=== PATIENT | female | born 1955 | race Caucasian/White ===

== ENCOUNTER → 2016-04-17 | Outpatient (CLI) | payer OTHER | LOC: RAD 17:46 | PROVIDERS: ATTEND Specialist | DX: C34.91 Malignant neoplasm of unspecified part of right bronchus or lung (principal) | CPT/HCPCS: 78815; A9552 ==

== ENCOUNTER 2016-06-22 09:53 | Outpatient (CLI) | payer OTHER ==
[~2016-06-22 09:53] MED LIST: DIPHENHYDRAMINE HCL 50 MG/ML VIAL IV PRN; FAMOTIDINE INJ/PF 20 MG/2 ML SDV IV PRN; NORMAL SALINE 250 ML IV PRN; NORMAL SALINE IV PRN; ONDANSETRON HCL/PF 16 MG, DEXAMETHASONE SOD PHOSPHATE 20 MG in NORMAL SALINE 50 ML IV PRN; PEMETREXED DISODIUM IV PRN
[2016-06-22 10:36] VITALS: BP 114/54
== END 2016-06-22 11:47 | disposition home or self-care (01) ==
LOC: II 09:53 → 5TH 10:44 → II 11:47
PROVIDERS: ATTEND Specialist
PROC: 3E03305 Introduction of Other Antineoplastic into Peripheral Vein, Percutaneous Approach (ICD-10-PCS; principal; 2016-06-22)
PROC: 3E033GC Introduction of Other Therapeutic Substance into Peripheral Vein, Percutaneous Approach (ICD-10-PCS; 2016-06-22)
DX: Z51.11 Encounter for antineoplastic chemotherapy (principal); C34.91 Malignant neoplasm of unspecified part of right bronchus or lung
CPT/HCPCS: 96367; 96375; 96413; J1100; J1200; J2405; J9305; S0028

== ENCOUNTER 2016-07-13 14:53 | Outpatient (CLI) | payer OTHER ==
[2016-07-13] MEDS ORDERED: ONDANSETRON HCL/PF 16 MG, DEXAMETHASONE SOD PHOSPHATE 20 MG in NORMAL SALINE 50 ML IV PRN (15:02)
[2016-07-13] MEDS ORDERED: NORMAL SALINE 250 ML IV PRN (15:05)
[2016-07-13] MEDS ORDERED: NORMAL SALINE IV PRN (15:05)
[2016-07-13] MEDS ORDERED: PEMETREXED DISODIUM IV PRN (15:05)
[2016-07-13 15:45] VITALS: BP 130/76
== END 2016-07-13 16:05 | disposition home or self-care (01) ==
LOC: II 14:53 → 5TH 15:01 → II 16:05
PROVIDERS: ATTEND Specialist
PROC: 3E03305 Introduction of Other Antineoplastic into Peripheral Vein, Percutaneous Approach (ICD-10-PCS; principal; 2016-07-13)
PROC: 3E033GC Introduction of Other Therapeutic Substance into Peripheral Vein, Percutaneous Approach (ICD-10-PCS; 2016-07-13)
DX: Z51.11 Encounter for antineoplastic chemotherapy (principal); C34.91 Malignant neoplasm of unspecified part of right bronchus or lung
CPT/HCPCS: 96413; 96367; J2405; J1100; J9305 ×2

== ENCOUNTER → 2016-07-15 | Outpatient (CLI) | payer OTHER | LOC: RAD 12:35 | PROVIDERS: ATTEND Specialist | DX: C34.90 Malignant neoplasm of unspecified part of unspecified bronchus or lung (principal) | CPT/HCPCS: 78815; A9552 ==

== ENCOUNTER 2016-08-03 11:59 | Outpatient (CLI) | payer OTHER ==
[~2016-08-03 11:59] MED LIST changes: -DIPHENHYDRAMINE HCL 50 MG/ML VIAL IV PRN; -FAMOTIDINE INJ/PF 20 MG/2 ML SDV IV PRN
[2016-08-03 12:57] VITALS: BP 144/72
[2016-08-03] MEDS ORDERED: ACETAMINOPHEN 325 MG TABLET ONE (13:35)
[2016-08-03] MEDS ORDERED: DIPHENHYDRAMINE HCL 25 MG CAPSULE ONE (13:35)
== END 2016-08-03 14:34 | disposition home or self-care (01) ==
LOC: II 11:59 → 5TH 12:01 → II 14:34
PROVIDERS: ATTEND Specialist
PROC: 3E03305 Introduction of Other Antineoplastic into Peripheral Vein, Percutaneous Approach (ICD-10-PCS; principal; 2016-08-03)
PROC: 3E033GC Introduction of Other Therapeutic Substance into Peripheral Vein, Percutaneous Approach (ICD-10-PCS; 2016-08-03)
DX: Z51.11 Encounter for antineoplastic chemotherapy (principal); C34.91 Malignant neoplasm of unspecified part of right bronchus or lung
CPT/HCPCS: 96413; 96366; J2405; J1100; J9305 ×2; 96367

== ENCOUNTER → 2016-08-11 | Outpatient (CLI) | payer OTHER ==
--- NOTE | 2016-08-11 11:43 | WOMENS IMAGING REPORT ---
EXAM DESCRIPTION: U/S BREAST UNILAT LIMITED COMPLETED DATE/TIME: 08/11/2016 11:12 am REASON FOR STUDY: R SIDE BREAST LIPOMA; D17.9 D17.9 BENIGN LIPOMATOUS NEOPLASM, UNSPECIFIED COMPARISON: None. TECHNIQUE: Real-time and static grayscale imaging performed of the right breast targeted to the area of clinical/mammographic concern. Selected color Doppler images recorded. LIMITATIONS: None. FINDINGS: MASS: No mass identified. Normal glandular tissue. OTHER: No other significant finding. IMPRESSION: No suspicious findings detected by ultrasound. BIRAD: 1 Negative. RECOMMENDATION: RECOMMENDED FOLLOW-UP: Follow-up as clinically indicated. COMMENT: The [employer] (ACR) has developed recommendations for screening MRI of the breasts in certain patient populations, to be used in conjunction with mammography. Breast MRI s urveillance may be appropriate for women with more than 20% lifetime risk of developing breast cancer as determined by genetic testing, significant family history of the disease, or history of mantle r adiation for Hodgkins Disease. ACR Practice Guidelines 2008. TECHNICAL DOCUMENTATION: JOB ID: [id number] [employer]- All Rights Reserved
== END ==
LOC: WI 10:26
PROVIDERS: ATTEND Specialist
DX: D17.9 Benign lipomatous neoplasm, unspecified (principal)
CPT/HCPCS: 76642

== ENCOUNTER → 2016-08-17 | Outpatient (CLI) | payer OTHER | LOC: OD 14:19 | PROVIDERS: ATTEND Specialist | DX: D64.9 Anemia, unspecified (principal); C34.91 Malignant neoplasm of unspecified part of right bronchus or lung; Z53.8 Procedure and treatment not carried out for other reasons ==

== ENCOUNTER 2016-08-24 08:09 | Outpatient (CLI) | payer OTHER ==
[~2016-08-24 08:09] MED LIST changes: +ONDANSETRON HCL/PF 16 MG, DEXAMETHASONE SOD PHOSPHATE 10 MG in NORMAL SALINE 50 ML IV PRN; -ONDANSETRON HCL/PF 16 MG, DEXAMETHASONE SOD PHOSPHATE 20 MG in NORMAL SALINE 50 ML IV PRN
[2016-08-24 09:15] VITALS: BP 147/81
== END 2016-08-24 09:50 | disposition home or self-care (01) ==
LOC: II 08:09 → 5TH 08:10 → II 09:50 → 5TH 09:50
PROVIDERS: ATTEND Specialist
PROC: 3E03305 Introduction of Other Antineoplastic into Peripheral Vein, Percutaneous Approach (ICD-10-PCS; principal; 2016-08-24)
PROC: 3E033GC Introduction of Other Therapeutic Substance into Peripheral Vein, Percutaneous Approach (ICD-10-PCS; 2016-08-24)
DX: Z51.11 Encounter for antineoplastic chemotherapy (principal); C34.91 Malignant neoplasm of unspecified part of right bronchus or lung
CPT/HCPCS: 96413; 96367; J2405; J1100; J9305 ×2

== ENCOUNTER 2016-09-14 09:02 | Outpatient (CLI) | payer OTHER ==
[2016-09-14 10:02] VITALS: BP 142/78
== END 2016-09-14 10:44 | disposition home or self-care (01) ==
LOC: II 09:02 → 5TH 09:04 → II 10:44
PROVIDERS: ATTEND Internal Medicine
PROC: 3E03305 Introduction of Other Antineoplastic into Peripheral Vein, Percutaneous Approach (ICD-10-PCS; principal; 2016-09-14)
PROC: 3E033GC Introduction of Other Therapeutic Substance into Peripheral Vein, Percutaneous Approach (ICD-10-PCS; 2016-09-14)
DX: Z51.11 Encounter for antineoplastic chemotherapy (principal); C34.91 Malignant neoplasm of unspecified part of right bronchus or lung
CPT/HCPCS: 96413; 96365; J2405; J1100; J9305 ×2; 96367

== ENCOUNTER 2016-10-05 11:31 | Outpatient (CLI) | payer OTHER ==
[~2016-10-05 11:31] MED LIST changes: -NORMAL SALINE 250 ML IV PRN
[2016-10-05 11:56] VITALS: BP 140/80
[2016-10-05] MEDS: NORMAL SALINE 250 ML IV PRN ×2 (12:03→12:26)
== END 2016-10-05 12:45 | disposition home or self-care (01) ==
LOC: II 11:31 → 5TH 11:33 → II 12:45
PROVIDERS: ATTEND Internal Medicine
PROC: 3E03305 Introduction of Other Antineoplastic into Peripheral Vein, Percutaneous Approach (ICD-10-PCS; principal; 2016-10-05)
PROC: 3E033GC Introduction of Other Therapeutic Substance into Peripheral Vein, Percutaneous Approach (ICD-10-PCS; 2016-10-05)
DX: Z51.11 Encounter for antineoplastic chemotherapy (principal); C34.91 Malignant neoplasm of unspecified part of right bronchus or lung
CPT/HCPCS: 96409; 96375; J2405; J1100; J9305 ×2; 96365; 96413

== ENCOUNTER → 2016-11-02 | Outpatient (CLI) | payer SELFPAY ==
[2016-11-02 19:50] LABS: THYROID STIMULATING HORMONE 13.7 uIU/mL (0.47-4.68)
== END ==
LOC: OD 18:04
PROVIDERS: ATTEND Internal Medicine
DX: E03.9 Hypothyroidism, unspecified (principal)
CPT/HCPCS: 36415; 84439; 84443

== ENCOUNTER → 2016-11-11 | Outpatient (CLI) | payer SELFPAY ==
--- NOTE | 2016-11-11 10:43 | RADIOLOGY REPORT (SQ) ---
EXAM DESCRIPTION: CT CHEST WITH COMPLETED DATE/TIME: 11/11/2016 9:56 am REASON FOR STUDY: LUNG CA (C34.91) C34.91 MALIGNANT NEOPLASM OF UNSP PART OF RIGHT BRONCHUS OR COMPARISON: None. TECHNIQUE: CT scan of the chest performed using helical scanning technique with dynamic intravenous contrast injection. Images reviewed with lung, soft tissue and bone windows. Reconstructed coronal and sagittal MPR images reviewed. All images stored on PACS. All CT scanners at this facility use dose modulation, iterative reconstruction, and/or weight based d osing when appropriate to reduce radiation dose to as low as reasonably achievable (ALARA). [facility]: Dose Right [facility]: CareDose [facility]: Dose Right [facility]: Teradose 4D [facility]: Isoflux CONTRAST TYPE AND DOSE: contrast/concentration: Isovue 370.00 mg/ml; Total Contrast Delivered: 80.0 ml; Total Saline Delivered: 55.0 ml RENAL FUNCTION: Creatinine 0.8 RADIATION DOSE: Up-to-date CT equipment and radiation dose reduction techniques were employed. CTDIv ol: 2.8 mGy. DLP: 108 mGy-cm. . LIMITATIONS: None. FINDINGS: LUNGS AND PLEURA: Centrilobular emphysematous changes are most prominent in the upper lobe s but scattered throughout the lungs what appear to be post radiation changes are present the right u pper lobe on image 24 series 2 there is an area of confluent density measuring 20 x 45 mm seen latera lly in the right lung. The 4 cm mass present on the earlier study is no longer identified as such. HILAR AND MEDIASTINAL STRUCTURES: No identified masses or abnormal nodes. HEART AND VASCULAR STRUCTURES: No aneurysm or dissection. No central pulmonary emboli. No pericardi al effusion. HARDWARE: None in the chest. UPPER ABDOMEN: There is moderate ascites. THYROID AND OTHER SOFT TISSUES: No masses. No adenopathy. The thyroid is surgically absent. BONES: No significant finding. OTHER: No other significant finding. IMPRESSION: 1. Marked chronic lung changes. 2. Radiation change in the right upper lobe predominantly. There is residual confluent density as d escribed. This may represent residual tumor. It may represent scarring. 3. There is ascites. TECHNICAL DOCUMENTATION: JOB ID: [id number] Quality ID # 436: Final reports with documentation of one or more dose reduction techniques (e.g., Au tomated exposure control, adjustment of the mA and/or kV according to patient size, use of iterative reconstruction technique) 2010 [employer] All Rights Reserved
== END ==
LOC: RAD 09:20
PROVIDERS: ATTEND Internal Medicine
DX: C34.91 Malignant neoplasm of unspecified part of right bronchus or lung (principal)
CPT/HCPCS: 71260; 82565

== ENCOUNTER 2016-11-16 12:02 | Outpatient (CLI) | payer OTHER ==
[~2016-11-16 12:02] MED LIST changes: +NORMAL SALINE 250 ML IV PRN
[2016-11-16 12:19] VITALS: BP 139/78
== END 2016-11-16 13:30 | disposition home or self-care (01) ==
LOC: II 12:02 → 5TH 12:04 → II 13:30
PROVIDERS: ATTEND Internal Medicine
PROC: 3E03305 Introduction of Other Antineoplastic into Peripheral Vein, Percutaneous Approach (ICD-10-PCS; principal; 2016-11-16)
PROC: 3E033GC Introduction of Other Therapeutic Substance into Peripheral Vein, Percutaneous Approach (ICD-10-PCS; 2016-11-16)
DX: Z51.11 Encounter for antineoplastic chemotherapy (principal); C34.91 Malignant neoplasm of unspecified part of right bronchus or lung
CPT/HCPCS: 96409; 96367; J2405; J1100; J9305 ×2; 96413

== ENCOUNTER 2016-12-07 11:39 | Outpatient (CLI) | payer SELFPAY ==
[2016-12-07 12:49] VITALS: BP 134/75
== END 2016-12-07 13:25 | disposition home or self-care (01) ==
LOC: II 11:39 → 5TH 11:40 → II 13:25
PROVIDERS: ATTEND Internal Medicine
PROC: 3E03305 Introduction of Other Antineoplastic into Peripheral Vein, Percutaneous Approach (ICD-10-PCS; principal; 2016-12-07)
PROC: 3E033GC Introduction of Other Therapeutic Substance into Peripheral Vein, Percutaneous Approach (ICD-10-PCS; 2016-12-07)
DX: Z51.11 Encounter for antineoplastic chemotherapy (principal); C34.91 Malignant neoplasm of unspecified part of right bronchus or lung; R91.8 Other nonspecific abnormal finding of lung field; D64.9 Anemia, unspecified
CPT/HCPCS: 96413; 96367; J2405; J1100; J9305 ×2; 96409

== ENCOUNTER 2016-12-28 12:20 | Outpatient (CLI) | payer SELFPAY ==
[~2016-12-28 12:20] MED LIST changes: +CYANOCOBALAMIN (VITAMIN B-12) INJ 1000 MCG/1 ML VIAL IM PRN
[2016-12-28 13:24] VITALS: BP 149/75
== END 2016-12-28 14:06 | disposition home or self-care (01) ==
LOC: II 12:20 → 5TH 12:32 → II 14:06
PROVIDERS: ATTEND Internal Medicine Hematology & Oncology
PROC: 3E04305 Introduction of Other Antineoplastic into Central Vein, Percutaneous Approach (ICD-10-PCS; principal; 2016-12-28)
PROC: 3E043GC Introduction of Other Therapeutic Substance into Central Vein, Percutaneous Approach (ICD-10-PCS; 2016-12-28)
PROC: 3E0437Z Introduction of Electrolytic and Water Balance Substance into Central Vein, Percutaneous Approach (ICD-10-PCS; 2016-12-28)
PROC: 3E013GC Introduction of Other Therapeutic Substance into Subcutaneous Tissue, Percutaneous Approach (ICD-10-PCS; 2016-12-28)
DX: Z51.11 Encounter for antineoplastic chemotherapy (principal); C34.91 Malignant neoplasm of unspecified part of right bronchus or lung; R91.8 Other nonspecific abnormal finding of lung field; D64.81 Anemia due to antineoplastic chemotherapy; T45.1X5A Adverse effect of antineoplastic and immunosuppressive drugs, initial encounter
CPT/HCPCS: 96413; 96367; 96372; 96375; J3420; J2405; J1100; J9305 ×2; 96361; 96411

== ENCOUNTER 2017-01-18 09:49 | Outpatient (CLI) | payer SELFPAY ==
[~2017-01-18 09:49] MED LIST changes: -CYANOCOBALAMIN (VITAMIN B-12) INJ 1000 MCG/1 ML VIAL IM PRN; +DARBEPOETIN ALFA IN POLYSORBAT 500 MCG/ML SYRINGE SUBCUT PRN
[2017-01-18 10:11] VITALS: BP 129/78
== END 2017-01-18 12:50 | disposition home or self-care (01) ==
LOC: II 09:49 → 5TH 09:51 → II 12:50
PROVIDERS: ATTEND Internal Medicine Hematology & Oncology
PROC: 3E04305 Introduction of Other Antineoplastic into Central Vein, Percutaneous Approach (ICD-10-PCS; principal; 2017-01-18)
PROC: 3E043GC Introduction of Other Therapeutic Substance into Central Vein, Percutaneous Approach (ICD-10-PCS; 2017-01-18)
PROC: 3E013GC Introduction of Other Therapeutic Substance into Subcutaneous Tissue, Percutaneous Approach (ICD-10-PCS; 2017-01-18)
DX: Z51.11 Encounter for antineoplastic chemotherapy (principal); C34.91 Malignant neoplasm of unspecified part of right bronchus or lung; D64.81 Anemia due to antineoplastic chemotherapy; R91.8 Other nonspecific abnormal finding of lung field
CPT/HCPCS: 96401; 96413; 96367; 96523; J2405; J1100; J9305 ×2; J0881; 96372; 96409

== ENCOUNTER 2017-02-08 09:30 | Outpatient (CLI) | payer OTHER ==
[2017-02-08 09:55] VITALS: BP 124/69
== END 2017-02-08 11:48 | disposition home or self-care (01) ==
LOC: II 09:30 → 5TH 09:31 → II 11:48
PROVIDERS: ATTEND Internal Medicine Hematology & Oncology
PROC: 3E04305 Introduction of Other Antineoplastic into Central Vein, Percutaneous Approach (ICD-10-PCS; principal; 2017-02-08)
PROC: 3E043GC Introduction of Other Therapeutic Substance into Central Vein, Percutaneous Approach (ICD-10-PCS; 2017-02-08)
PROC: 3E013GC Introduction of Other Therapeutic Substance into Subcutaneous Tissue, Percutaneous Approach (ICD-10-PCS; 2017-02-08)
DX: Z51.11 Encounter for antineoplastic chemotherapy (principal); C34.91 Malignant neoplasm of unspecified part of right bronchus or lung; D64.81 Anemia due to antineoplastic chemotherapy; R91.8 Other nonspecific abnormal finding of lung field
CPT/HCPCS: 96413; 96367; 96523; J2405; J1100; J9305 ×2; J0881; 96409

== ENCOUNTER 2017-03-01 11:14 | Outpatient (CLI) | payer SELFPAY ==
[~2017-03-01 11:14] MED LIST changes: +CYANOCOBALAMIN (VITAMIN B-12) INJ 1000 MCG/1 ML VIAL IM PRN
[2017-03-01 11:35] VITALS: BP 142/75
[2017-03-01 11:50] LABS: ALANINE AMINOTRANSFERASE 23 U/L (9-52); ALBUMIN 3.4 g/dL (3.5-5.0); ALKALINE PHOSPHATASE 123 U/L (38-126); ANION GAP 12 (5-19); ASPARTATE AMINO TRANSFERASE 20 U/L (14-36); BILIRUBIN,DIRECT 0.3 mg/dL (0.0-0.4); BILIRUBIN,TOTAL 0.3 mg/dL (0.2-1.3); BLOOD UREA NITROGEN 8 mg/dL (7-20); CALCIUM 8.9 mg/dL (8.4-10.2); CARBON DIOXIDE 27 mmol/L (22-30); CHLORIDE 91 mmol/L (98-107); GLUCOSE 91 mg/dL (75-110); POTASSIUM 4.2 mmol/L (3.6-5.0); SODIUM 130.4 mmol/L (137-145); TOTAL PROTEIN 7.2 g/dL (6.3-8.2)
[2017-03-01 12:20] LABS: CARCINOEMBRYONIC ANTIGEN 8.2 ng/mL (<3.0)
== END 2017-03-01 13:25 | disposition home or self-care (01) ==
LOC: II 11:14 → 5TH 11:25 → II 13:25
PROVIDERS: ATTEND Internal Medicine Hematology & Oncology
PROC: 3E04305 Introduction of Other Antineoplastic into Central Vein, Percutaneous Approach (ICD-10-PCS; principal; 2017-03-01)
PROC: 3E043GC Introduction of Other Therapeutic Substance into Central Vein, Percutaneous Approach (ICD-10-PCS; 2017-03-01)
PROC: 3E0 Administration, Physiological Systems and Anatomical Regions, Introduction (ICD-10-PCS; 2017-03-01)
DX: Z51.11 Encounter for antineoplastic chemotherapy (principal); C34.91 Malignant neoplasm of unspecified part of right bronchus or lung; D64.81 Anemia due to antineoplastic chemotherapy
CPT/HCPCS: 36415; 82378; 80053; 96413; 96372; 96375; J3420; J2405; J1100; J9305; 96367; 96409; J0881

== ENCOUNTER → 2017-03-20 | Outpatient (CLI) | payer SELFPAY ==
--- NOTE | 2017-03-20 10:41 | RADIOLOGY REPORT (SQ) ---
EXAM DESCRIPTION: CT CHEST WITH COMPLETED DATE/TIME: 03/20/2017 8:43 am REASON FOR STUDY: LUNG CA (C34.91) C34.91 MALIGNANT NEOPLASM OF UNSP PART OF RIGHT BRONCHUS OR COMPARISON: 11/11/2016. Correlation: PET-CT 07/15/2016. TECHNIQUE: CT scan of the chest performed using helical scanning technique with dynamic intravenous contrast injection. Images reviewed with lung, soft tissue and bone windows. Reconstructed coronal and sagittal MPR images reviewed. All images stored on PACS. All CT scanners at this facility use dose modulation, iterative reconstruction, and/or weight based d osing when appropriate to reduce radiation dose to as low as reasonably achievable (ALARA). [facility]: Dose Right [facility]: CareDose [facility]: Dose Right [facility]: Teradose 4D [facility]: [employer] CONTRAST TYPE AND DOSE: contrast/concentration: Isovue 370.00 mg/ml; Total Contrast Delivered: 80.0 ml; Total Saline Delivered: 55.0 ml RENAL FUNCTION: BUN 8 creatinine 0.7 RADIATION DOSE: CT Rad equipment meets quality standard of care and radiation dose reduction techniq ues were employed. CTDIvol: 2.8 mGy. DLP: 105 mGy-cm. . LIMITATIONS: None. FINDINGS: LUNGS AND PLEURA: Increasing consolidation in the right upper lobe largely obscuring the a esthela of the primary tumor. Fibrosis superior segment right lower lobe in the radiation port. No susp icious findings in the left lung. HILAR AND MEDIASTINAL STRUCTURES: No identified masses or abnormal nodes. HEART AND VASCULAR STRUCTURES: No aneurysm or dissection. No central pulmonary emboli. No pericardi al effusion. HARDWARE: Right-sided port tip in the SVC. UPPER ABDOMEN: Trace ascites. THYROID AND OTHER SOFT TISSUES: No masses. No adenopathy. BONES: No acute findings. OTHER: No other significant finding. IMPRESSION: Postradiation changes in the tumor bed. TECHNICAL DOCUMENTATION: JOB ID: [id number] Quality ID # 436: Final reports with documentation of one or more dose reduction techniques (e.g., Au tomated exposure control, adjustment of the mA and/or kV according to patient size, use of iterative reconstruction technique) 2010 [employer]- All Rights Reserved
== END ==
LOC: RAD 08:13
PROVIDERS: ATTEND Internal Medicine
DX: C34.91 Malignant neoplasm of unspecified part of right bronchus or lung (principal)
CPT/HCPCS: 71260

== ENCOUNTER 2017-03-22 09:57 | Outpatient (CLI) | payer SELFPAY ==
[~2017-03-22 09:57] MED LIST changes: -CYANOCOBALAMIN (VITAMIN B-12) INJ 1000 MCG/1 ML VIAL IM PRN
[2017-03-22 11:04] VITALS: BP 115/60
== END 2017-03-22 12:07 | disposition home or self-care (01) ==
LOC: II 09:57 → 5TH 09:59 → II 12:07
PROVIDERS: ATTEND Internal Medicine Hematology & Oncology
PROC: 3E03305 Introduction of Other Antineoplastic into Peripheral Vein, Percutaneous Approach (ICD-10-PCS; principal; 2017-03-22)
PROC: 3E033GC Introduction of Other Therapeutic Substance into Peripheral Vein, Percutaneous Approach (ICD-10-PCS; 2017-03-22)
PROC: 3E013GC Introduction of Other Therapeutic Substance into Subcutaneous Tissue, Percutaneous Approach (ICD-10-PCS; 2017-03-22)
DX: Z51.11 Encounter for antineoplastic chemotherapy (principal); C34.91 Malignant neoplasm of unspecified part of right bronchus or lung; R91.8 Other nonspecific abnormal finding of lung field; D64.81 Anemia due to antineoplastic chemotherapy
CPT/HCPCS: 96413; 96367; 96372; 96375; J2405; J1100; J9305 ×2; J0881; 96409

== ENCOUNTER 2017-04-12 09:28 | Outpatient (CLI) | payer SELFPAY ==
[2017-04-12 11:21] VITALS: BP 139/73
== END 2017-04-12 11:28 | disposition home or self-care (01) ==
LOC: II 09:28 → 5TH 09:29 → II 11:28
PROVIDERS: ATTEND Internal Medicine
PROC: 3E04305 Introduction of Other Antineoplastic into Central Vein, Percutaneous Approach (ICD-10-PCS; principal; 2017-04-12)
PROC: 3E043GC Introduction of Other Therapeutic Substance into Central Vein, Percutaneous Approach (ICD-10-PCS; 2017-04-12)
PROC: 3E0433Z Introduction of Anti-inflammatory into Central Vein, Percutaneous Approach (ICD-10-PCS; 2017-04-12)
PROC: 3E013GC Introduction of Other Therapeutic Substance into Subcutaneous Tissue, Percutaneous Approach (ICD-10-PCS; 2017-04-12)
DX: Z51.11 Encounter for antineoplastic chemotherapy (principal); C34.91 Malignant neoplasm of unspecified part of right bronchus or lung; D64.81 Anemia due to antineoplastic chemotherapy
CPT/HCPCS: 96401; 96413; 96367; 96374; J2405; J1100; J9305 ×2; J0881

== ENCOUNTER → 2017-06-19 | Outpatient (CLI) | payer SELFPAY ==
--- NOTE | 2017-06-19 14:56 | RADIOLOGY REPORT (SQ) ---
EXAM DESCRIPTION: CT CHEST WITH COMPLETED DATE/TIME: 06/19/2017 2:31 pm REASON FOR STUDY: LUNG CA C34.91 MALIGNANT NEOPLASM OF UNSP PART OF RIGHT BRONCHUS OR COMPARISON: 03/20/2017, 11/11/2016 02/15/2016. . TECHNIQUE: CT scan of the chest performed using helical scanning technique with dynamic intravenous contrast injection. Images reviewed with lung, soft tissue and bone windows. Reconstructed coronal and sagittal MPR images reviewed. All images stored on PACS. All CT scanners at this facility use dose modulation, iterative reconstruction, and/or weight based d osing when appropriate to reduce radiation dose to as low as reasonably achievable (ALARA). [facility]: Dose Right [facility]: CareDose [facility]: Dose Right [facility]: Teradose 4D [facility]: [employer] CONTRAST TYPE AND DOSE: 80 mL Isovue 370- low osmolar. RENAL FUNCTION: BUN 8 creatinine 0.68. RADIATION DOSE: . LIMITATIONS: None. FINDINGS: LUNGS AND PLEURA: Emphysematous changes. Worsening opacification of the right upper lobe with development of a large cystic area. Spiculated mass in the left lower lobe measures 1.6 cm with prior measurement 1.2 cm. No pleural effusion or pleural thickening. HILAR AND MEDIASTINAL STRUCTURES: No identified masses or abnormal nodes. HEART AND VASCULAR STRUCTURES: No aneurysm or dissection. No central pulmonary emboli. No pericardi al effusion. HARDWARE: None in the chest. UPPER ABDOMEN: See separate report of the CT of the abdomen. THYROID AND OTHER SOFT TISSUES: No masses. No adenopathy. BONES: No significant finding. OTHER: No other significant finding. IMPRESSION: CHRONIC EMPHYSEMATOUS CHANGES. MARKED WORSENING OPACIFICATION OF THE RIGHT UPPER LOBE W ITH DEVELOPMENT OF A LARGE CYSTIC AREA. DIFFICULT TO DETERMINE IF THESE FINDINGS REPRESENT PROGRESSI VE SCARRING SECONDARY TO TREATMENT OR IF THERE MAY BE PROGRESSION OF TUMOR. ADDITIONALLY THERE IS AN IRREGULAR MASS IN THE LEFT LOWER LOBE WHICH HAS INCREASED IN SIZE, CONCERNING FOR MALIGNANCY. RECOM MEND PET SCAN FOR FURTHER EVALUATION OF THESE AREAS. TECHNICAL DOCUMENTATION: JOB ID: [id number] Quality ID # 436: Final reports with documentation of one or more dose reduction techniques (e.g., Au tomated exposure control, adjustment of the mA and/or kV according to patient size, use of iterative reconstruction technique) 2010 [employer]- All Rights Reserved Reading location - IP/workstation name: [email or web address]
--- NOTE | 2017-06-19 15:02 | RADIOLOGY REPORT (SQ) ---
EXAM DESCRIPTION: CT ABD/PELVIS WITH IV ONLY COMPLETED DATE/TIME: 06/19/2017 2:31 pm REASON FOR STUDY: LUNG CA C34.91 MALIGNANT NEOPLASM OF UNSP PART OF RIGHT BRONCHUS OR COMPARISON: None. TECHNIQUE: CT scan of the abdomen and pelvis performed using helical scanning technique with dynamic intravenous contrast injection. No oral contrast. Images reviewed with lung, soft tissue, and bone windows. Reconstructed coronal and sagittal MPR images reviewed. Delayed images for evaluation of the urinary system also acquired. All images stored on PACS. All CT scanners at this facility use dose modulation, iterative reconstruction, and/or weight based d osing when appropriate to reduce radiation dose to as low as reasonably achievable (ALARA). [facility]: Dose Right [facility]: CareDose [facility]: Dose Right [facility]: Teradose 4D [facility]: [employer] CONTRAST TYPE AND DOSE: contrast/concentration: Isovue 370.00 mg/ml; Total Contrast Delivered: 42.0 ml; Total Saline Delivered: 65.0 ml RENAL FUNCTION: Creatinine 0.8. RADIATION DOSE: CT Rad equipment meets quality standard of care and radiation dose reduction techniq ues were employed. CTDIvol: 4.4 - 4.5 mGy. DLP: 589 mGy-cm.. LIMITATIONS: None. FINDINGS: LOWER CHEST: No significant findings. No nodules or infiltrates. LIVER: Normal size. No masses. No dilated ducts. SPLEEN: Normal size. No focal lesions. PANCREAS: No masses. No significant calcifications. No adjacent inflammation or peripancreatic fluid collections. Pancreatic duct not dilated. GALLBLADDER: No identified stones by CT criteria. No inflammatory changes to suggest cholecystitis. ADRENAL GLANDS: No significant masses or asymmetry. RIGHT KIDNEY AND URETER: No solid masses. No significant calcifications. No hydronephrosis or hyd roureter. LEFT KIDNEY AND URETER: No solid masses. No significant calcifications. No hydronephrosis or hydr oureter. AORTA AND VESSELS: No aneurysm. No dissection. Renal arteries, SMA, celiac without stenosis. RETROPERITONEUM: No retroperitoneal adenopathy, hemorrhage or masses. BOWEL AND PERITONEAL CAVITY: No masses or inflammatory changes. No free fluid or peritoneal masses. APPENDIX: Surgically absent. PELVIS: No mass. No free fluid. Normal bladder. ABDOMINAL WALL: No masses. No hernias. BONES: No significant or acute findings. OTHER: No other significant finding. IMPRESSION: NO SIGNIFICANT OR ACUTE FINDING IN THE ABDOMEN OR PELVIS ON CT SCAN WITH IV CONTRAST. TECHNICAL DOCUMENTATION: JOB ID: [id number] Quality ID # 436: Final reports with documentation of one or more dose reduction techniques (e.g., Au tomated exposure control, adjustment of the mA and/or kV according to patient size, use of iterative reconstruction technique) 2010 [employer]- All Rights Reserved Reading location - IP/workstation name: [facility]
== END ==
LOC: RAD 13:30
PROVIDERS: ATTEND Internal Medicine
DX: C34.91 Malignant neoplasm of unspecified part of right bronchus or lung (principal); R91.8 Other nonspecific abnormal finding of lung field
CPT/HCPCS: 71260; 74177; 82565

== ENCOUNTER → 2017-06-25 | Outpatient (CLI) | payer OTHER ==
--- NOTE | 2017-06-26 09:50 | RADIOLOGY REPORT (SQ) ---
EXAM DESCRIPTION: PET CT SKULL/THIGH COMPLETED DATE/TIME: 06/25/2017 7:16 pm REASON FOR STUDY: LUNG CANCER C34.91 MALIGNANT NEOPLASM OF UNSP PART OF RIGHT BRONCHUS OR COMPARISON: 07/15/2016. Correlation: CT chest abdomen pelvis 06/19/2017. RADIONUCLIDE AND DOSE: 10.38 mCi F18 FDG The route of agent administration: Intravenous FASTING BLOOD SUGAR: 103 mg/dl CONTRAST TYPE AND DOSE: No CT contrast given. TECHNIQUE: Blood glucose level was verified. Above dose of FDG was injected intravenously. 2-D seg mented attenuation correction images were obtained from the base of the skull to the midthighs. Nonc ontrast CT images were obtained for attenuation correction and fusion with emission images. CT image s were performed without oral or intravenous contrast and are not sensitive for parenchymal lesions. A series of overlapping emission PET images were obtained. Images reviewed and manipulated at [facility] work station by the radiologist. Images stored on PACS. LIMITATIONS: None. FINDINGS: HEAD AND NECK: No areas of abnormal metabolic activity in the soft tissues of the head and neck. CHEST: Hypermetabolic rind of tissue associated with cavitary lesion in the right upper lobe measurin g 4.0 SUV. Hypermetabolic 1.4 cm nodule left lower lobe 9.5 SUV. ABDOMEN AND PELVIS: No areas of abnormal metabolic activity in the abdomen or pelvis. Expected physi ologic activity is present in the genitourinary system and bowel. PROXIMAL LOWER EXTREMITIES: No areas of abnormal metabolic activity in the soft tissues of the lower extremities. BONES: No abnormal metabolic activity in the visualized skeleton. ADDITIONAL CT FINDINGS: See recent CT. No additional acute findings. OTHER: No other significant findings. IMPRESSION: 1. Hypermetabolic rind of tissue associated with large cavitary lesion in the right upper lobe. 2. Hypermetabolic nodule left lower lobe. TECHNICAL DOCUMENTATION: JOB ID: [id number] [employer]- All Rights Reserved Reading location - IP/workstation name: [email or web address]
== END ==
LOC: RAD 17:24
PROVIDERS: ATTEND Internal Medicine Hematology & Oncology
DX: C34.91 Malignant neoplasm of unspecified part of right bronchus or lung (principal)
CPT/HCPCS: 78815; A9552

== ENCOUNTER 2017-06-29 08:56 | Day surgery (SDC) | payer OTHER ==
[2017-06-29 09:52] LABS: HEMATOCRIT 26.2 % (36.0-47.0); HEMOGLOBIN 8.7 g/dL (12.0-15.5); MEAN CORPUSCULAR HEMOGLOBIN 30.2 pg (27.0-33.4); MEAN CORPUSCULAR HGB CONC 33.4 g/dL (32.0-36.0); MEAN CORPUSCULAR VOLUME 90 fl (80-97); PLATELET COUNT 427 10^3/uL (150-450); RED CELL DISTRIBUTION WIDTH 15.2 % (11.5-14.0); WHITE BLOOD COUNT 7.2 10^3/uL (4.0-10.5)
[2017-06-29 09:55] LABS: INTERNATIONAL RATION (INR) 1.25; PROTHROMBIN TIME 16.3 SEC (11.4-15.4)
[2017-06-29 09:56] LABS: PARTIAL THROMBOPLASTIN TIME 49.6 SEC (23.5-35.8)
[2017-06-29 10:05] LABS: BLOOD UREA NITROGEN 9 mg/dL (7-20)
[2017-06-29] MEDS ORDERED: LIDOCAINE 1% INJ-PF (10 MG/ML) 30 ML SDV ONE (11:20)
[2017-06-29] MEDS ORDERED: MIDAZOLAM 2 MG/2 ML INJ ONE (11:20)
[2017-06-29] MEDS ORDERED: FENTANYL CITRATE INJ/PF 100 MCG/2 ML AMPUL ONE (11:20)
--- NOTE | 2017-06-29 12:36 | RADIOLOGY REPORT (SQ) ---
EXAM DESCRIPTION: CHEST SINGLE VIEW COMPLETED DATE/TIME: 06/29/2017 12:28 pm REASON FOR STUDY: POST LUNG BIOPSY COMPARISON: CT dated 06/19/2017. EXAM PARAMETERS: NUMBER OF VIEWS: One view. TECHNIQUE: Single frontal radiographic view of the chest acquired. RADIATION DOSE: NA LIMITATIONS: None. FINDINGS: LUNGS AND PLEURA: Cavitary mass in the right upper lobe. Scarring and pleural thickening in the left apex. No pneumothorax. MEDIASTINUM AND HILAR STRUCTURES: No masses. Contour normal. HEART AND VASCULAR STRUCTURES: Heart normal in size. Normal vasculature. BONES: No acute findings. HARDWARE: Vascular access port. OTHER: No other significant finding. IMPRESSION: NO PNEUMOTHORAX FOLLOWING PERCUTANEOUS LUNG BIOPSY. TECHNICAL DOCUMENTATION: JOB ID: [id number] [employer]- All Rights Reserved Reading location - IP/workstation name: [email or web address]
--- NOTE | 2017-06-29 12:39 | RADIOLOGY REPORT (SQ) ---
EXAM DESCRIPTION: CT BIOPSY LUNG/MEDIASTINUM; CT NEEDLE PLACEMENT COMPLETED DATE/TIME: 06/29/2017 12:05 pm; 06/29/2017 12:04 pm REASON FOR STUDY: SOLITARY PULMONARY NODULE; SOLITARY PULMONARY NODULE, LUNG BX R91.1 SOLITARY PULM ONARY NODULE C34.91 MALIGNANT NEOPLASM OF UNSP PART OF RIGHT BRONCHUS OR COMPARISON: PET-CT dated 06/25/2017. FLUORO TIME: 4.5 seconds. LIMITATIONS: None. PROCEDURE: After obtaining informed consent, the patient was brought to the CT suite and was placed supine on the CT gurney. The patient was prepped and draped in the usual sterile fashion . Axial shell ges were obtained for targeting of theleft lower lobe. An appropriate access site was selected. IV se dation was administered and physician direction by the registered nurse using 0.5 milligrams of Verse d and 25 micrograms of fentanyl. Physiologic monitoring was provided before, during, and after sedati on. The total sedation time was 30 minutes. Documentation face to face time, the performing proceduralist, spent monitoring the patient: [address] scanners at this facility use dose modulation, iterative reconstruction, and/or weight based d osing when appropriate to reduce radiation dose to as low as reasonably achievable (ALARA). [facility]: Dose Right [facility]: CareDose [facility]: Dose Right [facility]: Teradose 4D [facility]: [employer] After sterile skin prep and local lidocaine for skin and deep tissue anesthesia, a coaxial biopsy nee dle was used to obtain multiple cores of tissue. The biopsy tissue was submitted to the lab. There we re no immediate complications. Pathology is pending at the time of dictation. IMPRESSION: SUCCESSFUL CT GUIDED PERCUTANEOUS LUNG BIOPSY OF THE LEFT LOWER LOBE. COMMENT: Patient medication list reviewed: Yes- Quality ID# 130:Eligible professional attests to doc umenting in the medical record they obtained, updated, or reviewed the patient's current medications. . Quality ID 145: Final reports for procedures using fluoroscopy that document radiation exposure michael manoj, or exposure time and number of fluorographic images (if radiation exposure indices are not avail able) Quality ID # 436: Final reports with documentation of one or more dose reduction techniques (e.g., Au tomated exposure control, adjustment of the mA and/or kV according to patient size, use of iterative reconstruction technique) TECHNICAL DOCUMENTATION: JOB ID: [id number] [employer]- All Rights Reserved Reading location - IP/workstation name: [email or web address]
[2017-06-29] MEDS ORDERED: ALBUTEROL SULFATE 0.083% NEB 2.5 MG/3 ML AMPUL NEB ONE (12:59)
[2017-06-29 15:02] VITALS: BP 115/72
--- NOTE | 2017-06-29 15:22 | RADIOLOGY REPORT (SQ) ---
EXAM DESCRIPTION: CHEST SINGLE VIEW COMPLETED DATE/TIME: 06/29/2017 2:58 pm REASON FOR STUDY: POST LUNG BIOPSY *2 HOUR*- do at 2:30 COMPARISON: 06/29/2017 at 1225 hours. EXAM PARAMETERS: NUMBER OF VIEWS: One view. TECHNIQUE: Single frontal radiographic view of the chest acquired. RADIATION DOSE: NA LIMITATIONS: None. FINDINGS: LUNGS AND PLEURA: Stable cavitary lesion in the right upper lobe and pleural and parenchym al scarring in the left apex. No pneumothorax following percutaneous lung biopsy. MEDIASTINUM AND HILAR STRUCTURES: No masses. Contour normal. HEART AND VASCULAR STRUCTURES: Heart normal in size. Normal vasculature. BONES: No acute findings. HARDWARE: None in the chest. OTHER: No other significant finding. IMPRESSION: STABLE APPEARANCE OF THE CHEST. NO PNEUMOTHORAX FOLLOWING LUNG BIOPSY. TECHNICAL DOCUMENTATION: JOB ID: [id number] [employer]- All Rights Reserved Reading location - IP/workstation name: [facility]
== END 2017-06-29 15:20 | disposition home or self-care (01) ==
LOC: RAD 08:56
PROVIDERS: ATTEND Internal Medicine Hematology & Oncology
DX: C34.91 Malignant neoplasm of unspecified part of right bronchus or lung (principal); R91.1 Solitary pulmonary nodule
CPT/HCPCS: 36415; 84520; 82565; 85027; 85610; 85730; 88342 ×2; 88341 ×2; 88305 ×2; 71045; 77012; 32405; J2250; J3010; J3490

== ENCOUNTER 2017-07-25 09:47 | Outpatient (CLI) | payer OTHER ==
[~2017-07-25 09:47] MED LIST changes: +CARBOPLATIN IV PRN; -DARBEPOETIN ALFA IN POLYSORBAT 500 MCG/ML SYRINGE SUBCUT PRN; +ETOPOSIDE IV PRN; -ONDANSETRON HCL/PF 16 MG, DEXAMETHASONE SOD PHOSPHATE 10 MG in NORMAL SALINE 50 ML IV PRN; +ONDANSETRON HCL/PF 16 MG, DEXAMETHASONE SOD PHOSPHATE 20 MG in NORMAL SALINE 50 ML IV PRN; -PEMETREXED DISODIUM IV PRN
[2017-07-25 10:13] VITALS: BP 103/59
[2017-07-25 11:54] LABS: ALANINE AMINOTRANSFERASE 17 U/L (9-52); ALBUMIN 2.9 g/dL (3.5-5.0); ALKALINE PHOSPHATASE 140 U/L (38-126); ANION GAP 12 (5-19); ASPARTATE AMINO TRANSFERASE 20 U/L (14-36); BILIRUBIN,DIRECT 0.2 mg/dL (0.0-0.4); BILIRUBIN,TOTAL 0.2 mg/dL (0.2-1.3); BLOOD UREA NITROGEN 11 mg/dL (7-20); CALCIUM 8.4 mg/dL (8.4-10.2); CARBON DIOXIDE 27 mmol/L (22-30); CHLORIDE 92 mmol/L (98-107); GLUCOSE 131 mg/dL (75-110); POTASSIUM 4.3 mmol/L (3.6-5.0); SODIUM 131.1 mmol/L (137-145); TOTAL PROTEIN 7.2 g/dL (6.3-8.2)
== END 2017-07-25 13:25 | disposition home or self-care (01) ==
LOC: II 09:47 → 5TH 10:11 → II 13:25
PROVIDERS: ATTEND Internal Medicine Hematology & Oncology
PROC: 3E04305 Introduction of Other Antineoplastic into Central Vein, Percutaneous Approach (ICD-10-PCS; principal; 2017-07-25)
PROC: 3E0433Z Introduction of Anti-inflammatory into Central Vein, Percutaneous Approach (ICD-10-PCS; 2017-07-25)
PROC: 3E043GC Introduction of Other Therapeutic Substance into Central Vein, Percutaneous Approach (ICD-10-PCS; 2017-07-25)
DX: Z51.11 Encounter for antineoplastic chemotherapy (principal); C34.91 Malignant neoplasm of unspecified part of right bronchus or lung
CPT/HCPCS: 36415; 80053; 96413; 96367; 96420; 96417; J9045; J9181; J2405; J7050; J7040; J1100; 96415

== ENCOUNTER 2017-07-26 09:00 | Outpatient (CLI) | payer OTHER ==
[~2017-07-26 09:00] MED LIST changes: -CARBOPLATIN IV PRN
[2017-07-26 09:29] VITALS: BP 108/59
== END 2017-07-26 12:08 | disposition home or self-care (01) ==
LOC: II 09:00 → 5TH 09:27 → II 12:08
PROVIDERS: ATTEND Internal Medicine Hematology & Oncology
PROC: 3E04305 Introduction of Other Antineoplastic into Central Vein, Percutaneous Approach (ICD-10-PCS; principal; 2017-07-26)
PROC: 3E043GC Introduction of Other Therapeutic Substance into Central Vein, Percutaneous Approach (ICD-10-PCS; 2017-07-26)
DX: Z51.11 Encounter for antineoplastic chemotherapy (principal); C34.91 Malignant neoplasm of unspecified part of right bronchus or lung
CPT/HCPCS: 96413; 96367; J9181; J2405; J7040; J1100

== ENCOUNTER 2017-07-27 08:59 | Outpatient (CLI) | payer OTHER ==
[~2017-07-27 08:59] MED LIST changes: -NORMAL SALINE 250 ML IV PRN
[2017-07-27] MEDS: NORMAL SALINE 250 ML IV PRN ×2 (09:13→09:54)
[2017-07-27 09:30] VITALS: BP 119/66
== END 2017-07-27 11:45 | disposition home or self-care (01) ==
LOC: II 08:59 → 5TH 09:02 → II 11:45
PROVIDERS: ATTEND Internal Medicine Hematology & Oncology
PROC: 3E04305 Introduction of Other Antineoplastic into Central Vein, Percutaneous Approach (ICD-10-PCS; principal; 2017-07-27)
PROC: 3E043GC Introduction of Other Therapeutic Substance into Central Vein, Percutaneous Approach (ICD-10-PCS; 2017-07-27)
DX: Z51.11 Encounter for antineoplastic chemotherapy (principal); C34.91 Malignant neoplasm of unspecified part of right bronchus or lung
CPT/HCPCS: 96413; 96367; J9181; J2405; J7040; J1100

== ENCOUNTER 2017-07-28 11:15 | Outpatient (CLI) | payer OTHER ==
[~2017-07-28 11:15] MED LIST changes: -ETOPOSIDE IV PRN; -NORMAL SALINE IV PRN; -ONDANSETRON HCL/PF 16 MG, DEXAMETHASONE SOD PHOSPHATE 20 MG in NORMAL SALINE 50 ML IV PRN; +PEGFILGRASTIM INJ 6 MG/0.6 ML DISP.SYRIN SUBCUT PRN
[2017-07-28 11:48] VITALS: BP 123/71
== END 2017-07-28 11:49 | disposition home or self-care (01) ==
LOC: II 11:15 → 5TH 11:17 → II 11:49
PROVIDERS: ATTEND Internal Medicine Hematology & Oncology
PROC: 3E013GC Introduction of Other Therapeutic Substance into Subcutaneous Tissue, Percutaneous Approach (ICD-10-PCS; principal; 2017-07-28)
DX: Z76.89 Persons encountering health services in other specified circumstances (principal); C34.91 Malignant neoplasm of unspecified part of right bronchus or lung; D70.1 Agranulocytosis secondary to cancer chemotherapy
CPT/HCPCS: 96401; J2505

== ENCOUNTER 2017-08-15 10:13 | Outpatient (CLI) | payer OTHER ==
[~2017-08-15 10:13] MED LIST changes: +CARBOPLATIN IV PRN; +ETOPOSIDE IV PRN; +NORMAL SALINE 250 ML IV PRN; +NORMAL SALINE IV PRN; +ONDANSETRON HCL/PF 16 MG, DEXAMETHASONE SOD PHOSPHATE 20 MG in NORMAL SALINE 50 ML IV PRN; -PEGFILGRASTIM INJ 6 MG/0.6 ML DISP.SYRIN SUBCUT PRN
[2017-08-15 10:42] VITALS: BP 100/48
== END 2017-08-15 13:59 | disposition home or self-care (01) ==
LOC: II 10:13 → 5TH 10:17 → II 13:59
PROVIDERS: ATTEND Internal Medicine Hematology & Oncology
PROC: 3E04305 Introduction of Other Antineoplastic into Central Vein, Percutaneous Approach (ICD-10-PCS; principal; 2017-08-15)
PROC: 3E0433Z Introduction of Anti-inflammatory into Central Vein, Percutaneous Approach (ICD-10-PCS; 2017-08-15)
PROC: 3E043GC Introduction of Other Therapeutic Substance into Central Vein, Percutaneous Approach (ICD-10-PCS; 2017-08-15)
DX: Z51.11 Encounter for antineoplastic chemotherapy (principal); C34.91 Malignant neoplasm of unspecified part of right bronchus or lung; D70.1 Agranulocytosis secondary to cancer chemotherapy
CPT/HCPCS: 96413; 96415; 96367; 96374; J9045; J9181; J2405; J7050; J7040; J1100; 96417

== ENCOUNTER 2017-08-17 09:02 | Outpatient (CLI) | payer OTHER ==
[~2017-08-17 09:02] MED LIST changes: -CARBOPLATIN IV PRN
[2017-08-17 09:36] VITALS: BP 127/61
== END 2017-08-17 11:40 | disposition home or self-care (01) ==
LOC: II 09:02 → 5TH 09:15 → II 11:40
PROVIDERS: ATTEND Internal Medicine Hematology & Oncology
PROC: 3E04305 Introduction of Other Antineoplastic into Central Vein, Percutaneous Approach (ICD-10-PCS; principal; 2017-08-17)
PROC: 3E0433Z Introduction of Anti-inflammatory into Central Vein, Percutaneous Approach (ICD-10-PCS; 2017-08-17)
PROC: 3E043GC Introduction of Other Therapeutic Substance into Central Vein, Percutaneous Approach (ICD-10-PCS; 2017-08-17)
DX: Z51.11 Encounter for antineoplastic chemotherapy (principal); C34.91 Malignant neoplasm of unspecified part of right bronchus or lung; D70.1 Agranulocytosis secondary to cancer chemotherapy
CPT/HCPCS: 96413; 96367; J9181; J2405; J7040; J1100

== ENCOUNTER 2017-08-28 10:37 | Emergency (ER) | payer OTHER ==
--- NOTE | 2017-08-28 12:11 | ER Document Report ---
ED Respiratory Problem - General Chief Complaint: Shortness Of Breath Stated Complaint: SHORTNESS OF BREATH Time Seen by Provider: 08/28/17 11:53 Mode of Arrival: Wheelchair Information source: Patient Notes: Chief complaint: Shortness of breath History of complain: 61 years old female with a history of lung cancer on the right side, has been going through chemotherapy for the last several weeks last one was last Monday. Presents today with increasing shortness of breath. Continuous chest pain on and off. On pain medication. Status is DNR according to the family and patient No fever chills. Dry cough Onset: As above Duration: Gradual Severity: Moderate to severe Quality:dull with occasional sharp pains Context: Lung cancer Exacerbating factor and relieving factors: Change of position or exertion REVIEW OF SYSTEMS: CONSTITUTIONAL : Denies fever, chills, or sweats. Denies recent illness. EENT: Denies eye, ear, throat, or mouth pain or symptoms. Denies nasal or sinus congestion or discharge. Denies throat, tongue, or mouth swelling or difficulty swallowing. CARDIOVASCULAR: Denies chest pain. Denies palpitations or racing or irregular heart beat. Denies ankle edema. RESPIRATORY: As per history of complain GASTROINTESTINAL: Denies abdominal pain or distention. Denies nausea, vomiting , or diarrhea. Denies blood in vomitus, stools, or per rectum. Denies black, tarry stools. Denies constipation. GENITOURINARY: Denies difficulty urinating, painful urination, burning, frequency, blood in urine, or discharge. MUSCULOSKELETAL: Denies back or neck pain or stiffness. Denies joint pain or swelling. SKIN: Denies rash, lesions or sores. HEMATOLOGIC : Denies easy bruising or bleeding. LYMPHATIC: Denies swollen, enlarged glands. NEUROLOGICAL: Denies confusion or altered mental status. Denies passing out or loss of consciousness. Denies dizziness or lightheadedness. Denies headache. Denies weakness or paralysis or loss of use of either side. Denies problems with gait or speech. Denies sensory loss, numbness, or tingling. Denies seizures. PSYCHIATRIC: Denies anxiety or stress. Denies depression, suicidal ideation, or homicidal ideation. ALL OTHER SYSTEMS REVIEWED AND NEGATIVE. Dictation was performed using [employer] voice recognition software PHYSICAL EXAMINATION: GENERAL: Cachectic, moderate respiratory discomfort on oxygen HEAD: Atraumatic, normocephalic. EYES: Pupils equal round and reactive to light, extraocular movements intact, sclera anicteric, conjunctiva are normal. ENT: Nares patent, oropharynx clear without exudates. Moist mucous membranes. NECK: Normal range of motion, supple without lymphadenopathy LUNGS: Bilaterally diminished breath sounds, with scattered rales and crackles throughout the lung field HEART: Regular rate and rhythm without murmurs ABDOMEN: Soft, nontender, nondistended abdomen. No guarding, no rebound. No masses appreciated. Musculoskeletal: Normal range of motion, no pitting or edema. No cyanosis. NEUROLOGICAL: Cranial nerves grossly intact. Normal speech, normal gait. Normal sensory, motor exams PSYCH: Normal mood, normal affect. SKIN: Warm, Dry, normal turgor, no rashes or lesions noted. TRAVEL OUTSIDE OF THE [place] IN LAST 30 DAYS: No - Related Data Allergies/Adverse Reactions: Sulfa (Sulfonamide Antibiotics) Allergy (Unknown, Verified 01/16/17 10:32) Past Medical History - General Information source: Patient - Social History Smoking Status: Current Every Day Smoker Chew tobacco use (# tins/day): No Frequency of alcohol use: None Drug Abuse: None Family History: Reviewed & Not Pertinent Patient has suicidal ideation: No Patient has homicidal ideation: No - Past Medical History Cardiac Medical History: Reports: Hx Hypertension Denies: Hx Congestive Heart Failure, Hx Coronary Artery Disease, Hx Heart Attack Pulmonary Medical History: Reports: Hx Pneumonia - 2018 Denies: Hx Asthma, Hx Bronchitis, Hx COPD, Hx Tuberculosis Neurological Medical History: Denies: Hx Cerebrovascular Accident, Hx Seizures Renal/ Medical History: Denies: Hx End Stage Renal Disease, Hx Kidney Stones, Hx Peritoneal Dialysis GI Medical History: Denies: Hx Cirrhosis, Hx Gastroesophageal Reflux Disease, Hx Ulcer Musculoskeltal Medical History: Denies Hx Arthritis, Denies Hx Multiple Sclerosis Psychiatric Medical History: Denies: Hx Bipolar Disorder, Hx Depression, Hx Schizophrenia Past Surgical History: Reports: Hx Thyroid Surgery - Immunizations Hx Diphtheria, Pertussis, Tetanus Vaccination: No Review of Systems - Review of Systems Notes: Dictated Physical Exam - Vital signs Vitals: Resp BP Pulse Ox 26 H 100/57 L 96 08/28/17 11:00 08/28/17 11:00 08/28/17 11:00 - Notes Notes: Dictated Course - Vital Signs Vital signs: Temp Pulse Resp BP Pulse Ox 96.8 F L 77 16 92/77 L 92 08/28/17 17:58 08/28/17 17:58 08/28/17 17:58 08/28/17 17:58 08/28/17 17:58 - Laboratory Result Diagrams: 08/28/17 11:15 08/28/17 11:15 Laboratory results interpreted by me: 08/28/17 08/28/17 11:15 11:15 WBC 0.5 L* RBC 3.23 L Hgb 9.5 L Hct 27.1 L RDW 16.5 H Plt Count 4 L* Seg Neutrophils % 81.0 H Lymphocytes % 2.1 L Monocytes % 15.6 H Absolute Neutrophils 0.4 L Absolute Lymphocytes 0.0 L Sodium 119.6 L* Potassium 3.3 L Chloride 84 L Carbon Dioxide 20 L BUN 63 H Creatinine 2.84 H Est GFR ( Amer) 20 L Est GFR (Non-Af Amer) 17 L Glucose 122 H Calcium 6.8 L* Direct Bilirubin 1.0 H AST 7 L Total Protein 5.2 L Albumin 2.3 L Discharge - Discharge Clinical Impression: Pancytopenia Lung cancer Qualifiers: Laterality: right Lung location: middle lobe of lung Qualified Code(s): C34.2 - Malignant neoplasm of middle lobe, bronchus or lung Pneumonia Qualifiers: Pneumonia type: aspiration pneumonia Aspiration pneumonia type: unspecified Laterality: right Lung location: middle lobe of lung Qualified Code(s): J69.0 - Pneumonitis due to inhalation of food and vomit Sepsis Qualifiers: Sepsis type: sepsis due to unspecified organism Qualified Code(s): A41.9 - Sepsis, unspecified organism Condition: Serious Disposition: [facility] Referrals: CLAIRE PARADA MD [Primary Care Provider] - Follow up as needed
[2017-08-28 12:51] LABS: ABSOLUTE MONOCYTES (AUTO) 0.1 10^3/uL (0.1-1.4); ABSOLUTE NEUT (AUTO) 0.4 10^3/uL (1.7-8.2); BASOPHILS % (AUTO) 0.4 % (0-2); EOSINOPHILS % (AUTO) 0.9 % (0-6); HEMATOCRIT 27.1 % (36.0-47.0); HEMOGLOBIN 9.5 g/dL (12.0-15.5); LYMPHOCYTES % (AUTO) 2.1 % (13-45); MEAN CORPUSCULAR HEMOGLOBIN 29.4 pg (27.0-33.4); MEAN CORPUSCULAR HGB CONC 35.1 g/dL (32.0-36.0); MEAN CORPUSCULAR VOLUME 84 fl (80-97); MONOCYTES % (AUTO) 15.6 % (3-13); RED BLOOD COUNT 3.23 10^6/uL (3.72-5.28); RED CELL DISTRIBUTION WIDTH 16.5 % (11.5-14.0); TOTAL CELLS COUNTED % (AUTO) 100 %
[2017-08-28 12:59] LABS: ALBUMIN 2.3 g/dL (3.5-5.0); BLOOD UREA NITROGEN 63 mg/dL (7-20); CARBON DIOXIDE 20 mmol/L (22-30); CHLORIDE 84 mmol/L (98-107); GLUCOSE 122 mg/dL (75-110); POTASSIUM 3.3 mmol/L (3.6-5.0); TOTAL PROTEIN 5.2 g/dL (6.3-8.2)
[2017-08-28 13:00] LABS: ALANINE AMINOTRANSFERASE 18 U/L (9-52); ALKALINE PHOSPHATASE 105 U/L (38-126); ASPARTATE AMINO TRANSFERASE 7 U/L (14-36); BILIRUBIN,TOTAL 1.1 mg/dL (0.2-1.3)
[2017-08-28 13:07] LABS: ANION GAP 16 (5-19)
[2017-08-28 13:10] LABS: CALCIUM 6.8 mg/dL (8.4-10.2); SODIUM 119.6 mmol/L (137-145)
[2017-08-28 13:16] LABS: WHITE BLOOD COUNT 0.5 10^3/uL (4.0-10.5)
[2017-08-28 13:17] LABS: PLATELET COUNT 4 10^3/uL (150-450)
[2017-08-28 13:19] LABS: ANISOCYTOSIS 1+; OVALOCYTES 1+; PLATELET COMMENT DECREASED; POIKILOCYTOSIS 1+; POLYCHROMASIA SLIGHT; ROULEAUX 1+
--- NOTE | 2017-08-28 13:40 | RADIOLOGY REPORT (SQ) ---
EXAM DESCRIPTION: CHEST SINGLE VIEW COMPLETED DATE/TIME: 08/28/2017 1:00 pm REASON FOR STUDY: sob COMPARISON: 06/29/2017 EXAM PARAMETERS: NUMBER OF VIEWS: One view. TECHNIQUE: Single frontal radiographic view of the chest acquired. RADIATION DOSE: NA LIMITATIONS: None. FINDINGS: LUNGS AND PLEURA: Extensive pleural and parenchymal changes are again identified in the ri ght hemithorax consistent with postsurgical and post radiation changes. On the current study there a re confluent densities in the right lower lung field which could represent an acute process superimpo sed on the chronic underlying changes and there is blunting of the right costophrenic angle which may represent a small right pleural effusion. Less extensive pleuroparenchymal changes are identified i n the left hemithorax. There is some ill-defined increased density in the left mid lung field which could represent an acute process superimposed on the chronic underlying changes. I cannot exclude a component of obstructive lung disease. MEDIASTINUM AND HILAR STRUCTURES: Right hilar region is obscured due to adjacent densities. No left hilar masses are identified. HEART AND VASCULAR STRUCTURES: Cardiac silhouette is within normal limits for size. BONES: No acute findings. HARDWARE: Right-sided Port-A-Cath is unchanged in position. OTHER: No other significant finding. IMPRESSION: Extensive pleural and parenchymal changes in the right hemithorax and less pronounced ch anges in the left hemithorax as noted above. There are confluent densities in the right lower lung f ield which could represent an acute process superimposed on the chronic underlying changes in there i s blunting of the right costophrenic angle which may represent a small right pleural effusion. There is ill-defined increased density in the left mid lung field which could represent an acute process s uperimposed on the chronic underlying changes. Other findings as noted above density TECHNICAL DOCUMENTATION: JOB ID: [id number] [employer]- All Rights Reserved Reading location - IP/workstation name: [email or web address]
[2017-08-28] MEDS ORDERED: NORMAL SALINE 1000 ML 1,000 ML IV PRN (16:24)
--- NOTE | 2017-08-28 17:48 | PDOC CONSULTATION ---
Consultation Consult Date: 08/28/17 Consult reason:: Admission for further management of Sepsis, Pancytopenia History of Present Illness Admission Date/PCP: CLAIRE PARADA MD Patient complains of: presents to the emergency room with complaints of difficulty breathing and shortness of breath History of Present Illness: FAIZA NEGRON is a 61 year old female presents to the emergency room with complaints of difficulty breathing and shortness of breath. She has a history of lung cancer, adenocarcinoma of the right lung for which she is receiving chemotherapy. She is receiving carboplatin and etopiside. Her last cycle was August 15 with the last date being on August 17. Patient was found to have a right lower lung field densities likely representing an acute process superimposed on chronic underlying changes. She also has some ill-defined increased density in the left midlung. In addition patient was found to be hypotensive with systolic BP of 100 and pulse of 102 with a respiratory rate of 25 on initial presentation. Further evaluation revealed a white count of 0.5 total and platelet count of 4000. Her platelet count was 358 2000 just 2 weeks ago and a white count was 26,000. Patient also found to be in acute renal failure with a creatinine of 2.8 and BUN of 64 creatinine was 0.57 and BUN of 12. Her sodium was also 119 with a potassium of 3.3. Patient denies any bleeding and no abdominal pain. She is weak but not confused and there has been no seizure activities. Given this patient's overall picture with her multiple comorbidities and poor condition and the lack of subspecialties at this hospital as well as the lack of even platelets being available I discussed with the ED physician the possibility of transferring her to a tertiary center. I called [place] transfer [facility] and after discussion with patient was accepted for transfer. The plan is to send her through the ED as the have a bit available right now so that patient can get platelet transfusion CINDY she will be transferred to the ED. I discussed with the family, and that is patient's daughter as well as the patient herself and the agreed to the transfer. They want her to have a chance even though they realize that she is pretty sick and her condition is pretty serious with overall poor prognosis. Past Medical History Cardiac Medical History: Reports: Hypertension Denies: Congestive Heart Failure, Coronary Artery Disease, Myocardial Infarction Pulmonary Medical History: Reports: Pneumonia - 2018 Denies: Asthma, Bronchitis, Chronic Obstructive Pulmonary Disease (COPD), Tuberculosis Neurological Medical History: Denies: Seizures Renal/ Medical History: Denies: End Stage Renal Disease Malignancy Medical History: Reports: Lung Cancer GI Medical History: Denies: Cirrhosis, Gastroesophageal Reflux Disease Musculoskeltal Medical History: Denies: Arthritis Psychiatric Medical History: Denies: Bipolar Disorder, Depression Hematology: Reports: Anemia Denies: Bleeding Tendencies Social History Information Source: Patient Smoking Status: Current Every Day Smoker Drugs: None - Advance Directive Resuscitation Status: Do Not Resuscitate Family History Family History: None Parental Family History Reviewed: No Children Family History Reviewed: No Sibling(s) Family History Reviewed.: No Medication/Allergy Allergies/Adverse Reactions: Sulfa (Sulfonamide Antibiotics) Allergy (Unknown, Verified 01/16/17 10:32) Physical Exam Vital Signs: Temp Pulse Resp BP Pulse Ox 26 H 106/57 L 96 08/28/17 17:01 08/28/17 17:01 08/28/17 17:01 Intake & Output 08/27/17 08/28/17 08/29/17 06:59 06:59 06:59 Weight 39.009 kg General appearance: PRESENT: cooperative, mild distress, thin - Acutely ill looking but not toxic Head exam: PRESENT: atraumatic Eye exam: PRESENT: conjunctiva pink, EOMI, PERRLA. ABSENT: scleral icterus Respiratory exam: PRESENT: accessory muscle use, decreased breath sounds, rhonchi, tachypnea. ABSENT: wheezes Cardiovascular exam: PRESENT: +S1, +S2 GI/Abdominal exam: PRESENT: normal bowel sounds, soft. ABSENT: distended, guarding, mass, organolmegaly, rebound, tenderness Rectal exam: PRESENT: deferred Neurological exam: PRESENT: alert, awake - Ear that consult, oriented to person , oriented to place, oriented to time - They get around. Psychiatric exam: PRESENT: anxious Results Laboratory Results: 08/28/17 11:15 08/28/17 11:15 08/28/17 08/28/17 11:15 11:15 WBC 0.5 L* RBC 3.23 L Hgb 9.5 L Hct 27.1 L MCV 84 MCH 29.4 MCHC 35.1 RDW 16.5 H Plt Count 4 L* Seg Neutrophils % 81.0 H Lymphocytes % 2.1 L Monocytes % 15.6 H Eosinophils % 0.9 Basophils % 0.4 Absolute Neutrophils 0.4 L Absolute Lymphocytes 0.0 L Absolute Monocytes 0.1 Absolute Eosinophils 0.0 Absolute Basophils 0.0 Sodium 119.6 L* Potassium 3.3 L Chloride 84 L Carbon Dioxide 20 L Anion Gap 16 BUN 63 H Creatinine 2.84 H Est GFR ( Amer) 20 L Est GFR (Non-Af Amer) 17 L Glucose 122 H Calcium 6.8 L* Total Bilirubin 1.1 AST 7 L ALT 18 Alkaline Phosphatase 105 Total Protein 5.2 L Albumin 2.3 L Impressions: Chest X-Ray 08/28/17 12:08 IMPRESSION: Extensive pleural and parenchymal changes in the right hemithorax and less pronounced changes in the left hemithorax as noted above. There are confluent densities in the right lower lung field which could represent an acute process superimposed on the chronic underlying changes in there is blunting of the right costophrenic angle which may represent a small right pleural effusion. There is ill-defined increased density in the left mid lung field which could represent an acute process superimposed on the chronic underlying changes. Other findings as noted above density Assessment & Plan - Diagnosis (1) Sepsis Qualifiers: Sepsis type: sepsis due to unspecified organism Qualified Code(s): A41.9 - Sepsis, unspecified organism Is this a current diagnosis for this admission?: Yes (2) Acute respiratory failure Qualifiers: Respiratory failure complication: hypoxia Qualified Code(s): J96.01 - Acute respiratory failure with hypoxia Is this a current diagnosis for this admission?: Yes (3) Pneumonia Qualifiers: Laterality: right Lung location: middle lobe of lung Is this a current diagnosis for this admission?: Yes (4) Pancytopenia Is this a current diagnosis for this admission?: Yes Plan: Patient needs urgent platelet transfusion. Although there is no evidence of bleeding at this point however her platelet count is dangerously low at 4000 and there is no immediate access to platelets at this facility. 1 of the reasons for urgent transfer is so that she can receive platelets as soon as possible and not only today but going forward as needed (5) FRANCIE (acute kidney injury) Is this a current diagnosis for this admission?: Yes Plan: Possibly from a intravascular volume depletion as well as ATN from a sepsis and hypotension. Patient will need cautious IV fluid and close monitoring of kidney function (6) Lung cancer Qualifiers: Laterality: right Lung location: middle lobe of lung Qualified Code(s): C34.2 - Malignant neoplasm of middle lobe, bronchus or lung Is this a current diagnosis for this admission?: Yes (7) Hyponatremia Is this a current diagnosis for this admission?: Yes Plan: Possibly related to her underlying lung cancer. There is no evidence of any neurological compromise. - Time Time Spent: Greater than 70 Minutes Medications reviewed and adjusted accordingly: Yes Anticipated discharge: [facility] Within: within 24 hours - Plan Summary Plan Summary: Patient needs services that are not available at this hospital and so she is being transferred to [facility] for further management. I have discussed with Dr. Sage who is her oncologist here and she is aware of the impending transfer
[2017-08-28 17:59] VITALS: BP 92/77
[2017-08-28] MEDS ORDERED: POTASSIUM CHLORIDE 10 MEQ CAPSULE.ER PO ONE (18:00)
[2017-08-29 11:46] LABS: PATH REVIEW PATHOLOGIST REVIEWED
== END 2017-08-28 18:00 | disposition short-term general hospital (02) ==
LOC: ER 10:37
DX: A41.9 Sepsis, unspecified organism (principal); C34.2 Malignant neoplasm of middle lobe, bronchus or lung; R06.02 Shortness of breath; D61.818 Other pancytopenia; R07.9 Chest pain, unspecified; F17.200 Nicotine dependence, unspecified, uncomplicated; I10 Essential (primary) hypertension; Z66 Do not resuscitate; Z79.899 Other long term (current) drug therapy; Z88.2 Allergy status to sulfonamides
CPT/HCPCS: 99285; 96360; 36415; 87040; 85025; 80053; 71045; J7030